=== PATIENT | female | born 1980 | race Two or more races ===

== ENCOUNTER 2024-05-15 08:59 | Emergency (ER) | payer OTHER ==
[~2024-05-15] VITALS: Ht 165.1 cm; Wt 67.1 kg
[~2024-05-15 08:59] MED LIST: MOTRIN800 MG PO; TUSSI PRES-B L120 M1 PO
[2024-05-15] MEDS ORDERED: IPRATROPIUM/ALBUTEROL SULFATE 3 ML AMPUL.NEB IH ONE (13:00)
[2024-05-15] MEDS ORDERED: 0.9 % SODIUM CHLORIDE 500 ML IV ONE (13:00)
[2024-05-15] MEDS ORDERED: ACETAMINOPHEN 500 MG GEL..CAP PO ONE (13:00)
[2024-05-15 13:46] LABS: HEMATOCRIT 37.9 % (36.0-45.00); HEMOGLOBIN 13.2 g/dL (12.0-15.00); MEAN CELL VOLUME 85.7 fL (80.00-100.00); MEAN CORPUSCULAR HEMOGLOBIN 29.8 pg (27.00-32.0); MEAN CORPUSCULAR HGB CONC 34.7 g/dl (32.0-36.0); PLATELET COUNT 238 K/uL (150-450); RED BLOOD COUNT 4.43 M/uL (4.00-6.00); RED CELL DISTRIBUTION WIDTH 13.4 % (11.5-14.5)
[2024-05-15 14:40] LABS: CALCIUM 10.4 mg/dL (8.5-10.1); CREATININE SERUM 0.69 mg/dL (0.55-1.02); GFR 93.3; POTASSIUM 4.14 mEq/L (3.5-5.1)
[2024-05-15] MEDS ORDERED: AMOX1TAB5 PO (15:20)
[2024-05-15] MEDS ORDERED: BENZONATATE150 MG PO (15:20)
[2024-05-15] MEDS ORDERED: ALBUTEROL1.25 MG/3 IH (15:20)
[2024-05-15] MEDS ORDERED: BUDESONIDE0.5 MG/2 M IH (15:20)
[2024-05-15] MEDS ORDERED: NASAL MIST126 ML NASAL (15:20)
== END 2024-05-15 15:31 | disposition home or self-care (01) ==
LOC: ER 09:01
PROVIDERS: General Practice
DX: B34.9 Viral infection, unspecified (principal); J45.909 Unspecified asthma, uncomplicated; R05.9 Cough, unspecified; M94.0 Chondrocostal junction syndrome [Tietze]; J00 Acute nasopharyngitis [common cold]; Z20.822 Contact with and (suspected) exposure to COVID-19